=== PATIENT | male | born 1950 | race Caucasian/White ===

== ENCOUNTER 2016-08-03 09:23 | Day surgery (SDC) | payer OTHER ==
[~2016-08-03] VITALS: Ht 177.8 cm; Wt 93.4 kg
[~2016-08-03 09:23] MED LIST: PERCOCET 5/31 TABLET PO
[2016-08-03 10:04] VITALS: BP 132/83
[2016-08-03] MEDS ORDERED: NORCO 5/3251 TABLET PO (14:36)
[2016-08-03 15:35] VITALS: BP 130/88
[2016-08-03 15:58] VITALS: BP 125/65
== END 2016-08-03 16:05 | disposition home or self-care (01) ==
LOC: SDC 09:23
PROC: 0YU60JZ Supplement Left Inguinal Region with Synthetic Substitute, Open Approach (ICD-10-PCS; principal; 2016-08-03)
DX: K40.30 Unilateral inguinal hernia, with obstruction, without gangrene, not specified as recurrent (principal); E66.3 Overweight; Z68.29 Body mass index [BMI] 29.0-29.9, adult; Z82.49 Family history of ischemic heart disease and other diseases of the circulatory system
CPT/HCPCS: C1781; J0131; J0690; J1170; J1200; J1885; J2250; J2405; J3010; S0020

== ENCOUNTER 2016-08-10 20:07 | Inpatient (IN) | payer OTHER ==
[~2016-08-10] VITALS: Ht 172.7 cm; Wt 85.5 kg
[~2016-08-10 20:07] MED LIST changes: +NORCO 5/3251 TABLET PO
[2016-08-10 21:19] LABS: MCH 30.4 PG (29.0-34.0); MCHC 33.9 G/DL (30.0-36.0); MCV 89.6 FL (86-99); MEAN PLAT.VOLUME 10.3 uM^3 (9.0-12.4); PLATELET COUNT 322 K/uL (156-360); RBC DIS.WIDTH-CV 11.9 % (11.8-14.6); RBC DIS.WIDTH-SD 38.5 % (39-53); RED BLOOD COUNT 5.69 M/uL (4.00-5.50); WHITE BLOOD COUNT 10.7 K/uL (4.1-10.2)
[2016-08-10 22:14] LABS: POINT-OF-CARE METER ID UU13113702
[2016-08-10] MEDS ORDERED: ADVIL200 MG PO (22:15)
[2016-08-10 22:28] LABS: CHLORIDE 102 mEq/L (99-109); POTASSIUM 5.3 mEq/L (3.7-5.4); SODIUM 130 mEq/L (136-147)
[2016-08-10 22:30] LABS: GLUCOSE 394 mg/dL (70-99)
[2016-08-10 22:31] LABS: ANION GAP 21 MEQ/L (2-14)
[2016-08-10 22:32] LABS: TOTAL BILIRUBIN 0.4 mg/dL (0.0-1.0)
[2016-08-10 22:34] LABS: ALKALINE PHOSPHATASE 58 IU/L (3-129); GFR ESTIMATE (CALCULATED) 43 mL/min/
[2016-08-10 22:35] LABS: UREA NITROGEN (BUN) 26 mg/dL (9-23)
[2016-08-10 22:36] LABS: DIRECT BILIRUBIN 0.2 mg/dL (0.0-0.3)
[2016-08-10 22:37] LABS: LIPASE 347 U/L (1.0-51.0)
[2016-08-10 23:00] LABS: POINT-OF-CARE METER ID UU13113702
[2016-08-11] VITALS (23 sets, daily range): BP systolic 83–128; BP diastolic 48–76
[2016-08-11 00:06] LABS: POINT-OF-CARE METER ID UU13113702
[2016-08-11 00:51] LABS: POINT-OF-CARE METER ID UU13113702; POINT-OF-CARE USER ID 608261302
[2016-08-11 01:53] LABS: POINT-OF-CARE METER ID UU13113702
[2016-08-11 03:18] LABS: METH RESISTANT S AUREUS PCR NEGATIVE (NEGATIVE)
[2016-08-11 03:23] LABS: PROBE CHECK PASS; SPECIMEN PROCESSING CONTROL PASS
[2016-08-11 04:33] LABS: EOSINOPHIL (%) 0.2 % (0-5); HEMATOCRIT 42.4 % (38.0-50.0); IMMATURE GRANULOCYTE (%) 1.3 % (0.0-0.7); IMMATURE GRANULOCYTE COUNT 0.1 K/uL; INSTRUMENT ABS NEUTROPHIL CT 6.8 K/uL; LYMPHOCYTE COUNT 1.3 K/uL (1.0-2.8); MCH 30.1 PG (29.0-34.0); MCV 88.5 FL (86-99); MEAN PLAT.VOLUME 10.1 uM^3 (9.0-12.4); MONOCYTE (%) 6.6 % (3-12); MONOCYTE COUNT 0.6 K/uL (0-0.8); NEUTROPHIL (%) 77.2 % (45-76); NEUTROPHIL COUNT 6.8 K/uL (1.8-6.4); PLATELET COUNT 282 K/uL (156-360); RBC DIS.WIDTH-CV 11.8 % (11.8-14.6); RBC DIS.WIDTH-SD 37.6 % (39-53); RED BLOOD COUNT 4.79 M/uL (4.00-5.50); WHITE BLOOD COUNT 8.8 K/uL (4.1-10.2)
[2016-08-11 04:39] LABS: CHLORIDE 109 mEq/L (99-109); POTASSIUM 4.5 mEq/L (3.7-5.4); SODIUM 134 mEq/L (136-147)
[2016-08-11 04:40] LABS: GLUCOSE 241 mg/dL (70-99)
[2016-08-11 04:42] LABS: ANION GAP 14 MEQ/L (2-14)
[2016-08-11 04:45] LABS: GFR ESTIMATE (CALCULATED) 50 mL/min/; UREA NITROGEN (BUN) 24 mg/dL (9-23)
[2016-08-11 08:10] LABS: Estimated Average Glucose 390 mg/dL (70-123)
[2016-08-11 08:12] LABS: HEMOGLOBIN A1c (GLYCOHEMOGLOB) 15.2 % HGB (Below 5.7)
[2016-08-11 08:42] LABS: ANION GAP 13 MEQ/L (2-14); CHLORIDE 107 MEQ/L (99-109); GLUCOSE 206 mg/dL (70-99); POTASSIUM 4.1 MEQ/L (3.7-5.4); SAMPLE HEMOLYSIS CHECK 0; SAMPLE ICTERIC CHECK 0; SAMPLE LIPEMIA CHECK 0; SODIUM 133 MEQ/L (136-147); UREA NITROGEN (BUN) 22 mg/dL (9-23)
[2016-08-11 08:43] LABS: GFR ESTIMATE (CALCULATED) > 59 mL/min/
[2016-08-11 10:55] LABS: BASE EXCESS -9.9 mEq/L (-3 to +3); BICARBONATE 15.3 mEq/L (22-26); CARBOXY HGB 1.7 % (0-5); METHEMOGLOBIN 1.1 % (0-1.5); PCO2 31 mm Hg (35-45); PO2 76 mm Hg (80-100); SITE LR
[2016-08-11 10:56] LABS: COMMENTS - BLOOD GASES A+C+; DEVICE RA; TOTAL RESP RATE 10 resp/min
[2016-08-11 13:44] LABS: ANION GAP 10 MEQ/L (2-14); CHLORIDE 108 MEQ/L (99-109); POTASSIUM 3.7 MEQ/L (3.7-5.4); SAMPLE HEMOLYSIS CHECK 0; SAMPLE ICTERIC CHECK 0; SAMPLE LIPEMIA CHECK 0; SODIUM 133 MEQ/L (136-147)
[2016-08-11 13:49] LABS: GFR ESTIMATE (CALCULATED) > 59 mL/min/; GLUCOSE 133 mg/dL (70-99); UREA NITROGEN (BUN) 20 mg/dL (9-23)
[2016-08-11 15:59] LABS: ANION GAP 12 MEQ/L (2-14); CHLORIDE 105 MEQ/L (99-109); POTASSIUM 3.8 MEQ/L (3.7-5.4); SAMPLE HEMOLYSIS CHECK 0; SAMPLE ICTERIC CHECK 0; SAMPLE LIPEMIA CHECK 0; SODIUM 132 MEQ/L (136-147)
[2016-08-11 16:05] LABS: GFR ESTIMATE (CALCULATED) > 59 mL/min/; UREA NITROGEN (BUN) 19 mg/dL (9-23)
[2016-08-11 16:09] LABS: GLUCOSE 210 mg/dL (70-99)
[2016-08-11 20:30] LABS: ANION GAP 13 MEQ/L (2-14); CHLORIDE 106 MEQ/L (99-109); GFR ESTIMATE (CALCULATED) > 59 mL/min/; GLUCOSE 223 mg/dL (70-99); POTASSIUM 3.5 MEQ/L (3.7-5.4); SAMPLE HEMOLYSIS CHECK 0; SAMPLE ICTERIC CHECK 0; SAMPLE LIPEMIA CHECK 0; SODIUM 132 MEQ/L (136-147); UREA NITROGEN (BUN) 17 mg/dL (9-23)
[2016-08-12] VITALS (13 sets, daily range): BP systolic 85–134; BP diastolic 49–80
[2016-08-12 01:19] LABS: CHLORIDE 108 mEq/L (99-109); POTASSIUM 3.7 mEq/L (3.7-5.4); SODIUM 133 mEq/L (136-147)
[2016-08-12 01:21] LABS: GLUCOSE 221 mg/dL (70-99)
[2016-08-12 01:23] LABS: ANION GAP 13 MEQ/L (2-14)
[2016-08-12 01:25] LABS: GFR ESTIMATE (CALCULATED) > 59 mL/min/
[2016-08-12 01:26] LABS: UREA NITROGEN (BUN) 16 mg/dL (9-23)
[2016-08-12 06:16] LABS: ANION GAP 15 MEQ/L (2-14); CHLORIDE 105 MEQ/L (99-109); GFR ESTIMATE (CALCULATED) > 59 mL/min/; GLUCOSE 201 mg/dL (70-99); POTASSIUM 3.3 MEQ/L (3.7-5.4); SAMPLE HEMOLYSIS CHECK 0; SAMPLE ICTERIC CHECK 0; SAMPLE LIPEMIA CHECK 0; SODIUM 133 MEQ/L (136-147); UREA NITROGEN (BUN) 13 mg/dL (9-23)
[2016-08-12 06:32] LABS: EOSINOPHIL (%) 1.2 % (0-5); EOSINOPHIL COUNT 0.1 K/uL (0-0.3); HEMATOCRIT 36.3 % (38.0-50.0); IMMATURE GRANULOCYTE COUNT 0.1 K/uL; INSTRUMENT ABS NEUTROPHIL CT 3.6 K/uL; LYMPHOCYTE COUNT 0.9 K/uL (1.0-2.8); MCH 29.7 PG (29.0-34.0); MCHC 33.9 G/DL (30.0-36.0); MCV 87.7 FL (86-99); MONOCYTE COUNT 0.5 K/uL (0-0.8); NEUTROPHIL (%) 70.4 % (45-76); NEUTROPHIL COUNT 3.6 K/uL (1.8-6.4); RBC DIS.WIDTH-CV 11.9 % (11.8-14.6); RBC DIS.WIDTH-SD 38.5 % (39-53); RED BLOOD COUNT 4.14 M/uL (4.00-5.50)
[2016-08-12 07:00] LABS: WHITE BLOOD COUNT 5.1 K/uL (4.1-10.2)
[2016-08-12 07:15] LABS: HEMATOLOGY COMMENT 1 SN; PLAT.SUFFICIENCY ADEQUATE
[2016-08-12 09:16] LABS: PLATELET COUNT 184 K/uL (156-360)
[2016-08-12 11:49] LABS: BASE EXCESS -8.5 mEq/L (-3 to +3); BICARBONATE 14.5 mEq/L (22-26); CARBOXY HGB 1.7 % (0-5); COMMENTS - BLOOD GASES A+C+; DEVICE RA; METHEMOGLOBIN 1.3 % (0-1.5); PCO2 24 mm Hg (35-45); PO2 68 mm Hg (80-100); SITE RR; TOTAL RESP RATE 12 resp/min; pH 7.39 (7.35-7.45)
[2016-08-13] VITALS: BP 104/57
[2016-08-13 02:41] LABS: POINT-OF-CARE METER ID UU14174217
[2016-08-13 03:05] LABS: CHLORIDE 110 mEq/L (99-109); POTASSIUM 3.1 mEq/L (3.7-5.4); SODIUM 139 mEq/L (136-147)
[2016-08-13 03:06] LABS: GLUCOSE 176 mg/dL (70-99)
[2016-08-13 03:08] LABS: ANION GAP 9 MEQ/L (2-14)
[2016-08-13 03:10] LABS: GFR ESTIMATE (CALCULATED) > 59 mL/min/
[2016-08-13 03:11] LABS: UREA NITROGEN (BUN) 10 mg/dL (9-23)
[2016-08-13 06:00] VITALS: BP 138/81
[2016-08-13 06:22] LABS: POINT-OF-CARE METER ID UU14174217
[2016-08-13 09:00] VITALS: BP 129/76
[2016-08-13 09:41] LABS: POINT-OF-CARE METER ID UU14174217
[2016-08-13] MEDS ORDERED: KLOR-CON M2020 MEQ PO (10:08)
[2016-08-13] MEDS ORDERED: LEVEMIR100 UNIT/2 SC ×3 (10:08→12:53)
[2016-08-13] MEDS ORDERED: NOVOLOG PE100 UNITS/ SC ×2 (10:08→12:32)
[2016-08-13 14:08] LABS: POINT-OF-CARE METER ID UU14174217
== END 2016-08-13 14:09 | disposition home or self-care (01) | DRG 637 ==
LOC: EME 20:07 → EDOF 08-11 00:10 → 4WEST 08-11 00:10
PROVIDERS: Emergency Medicine; Internal Medicine Critical Care Medicine; Surgery Surgical Critical Care
DX: E13.10 Other specified diabetes mellitus with ketoacidosis without coma (principal); G93.41 Metabolic encephalopathy; K59.00 Constipation, unspecified; R41.82 Altered mental status, unspecified; Z98.890 Other specified postprocedural states
CPT/HCPCS: 36600; 70450; 74176; 80048; 80048 91; 80076; 81003; 82803; 82948; 83036; 83605; 83690; 84100; 85025; 85027; 87641; 93005; 99281; 99285; J1650; J1815; J2270; J2405; J2543; J3480; J7030; J7040; J7042; J7050; J7120

== ENCOUNTER 2017-11-29 07:22 | Emergency (ER) | payer OTHER ==
[~2017-11-29] VITALS: Ht 177.8 cm; Wt 82.7 kg
[~2017-11-29 07:22] MED LIST changes: +ADVIL200 MG PO; +KLOR-CON M2020 MEQ PO; +LEVEMIR100 UNIT/2 SC; +NOVOLOG PE100 UNITS/ SC
[2017-11-29 11:03] VITALS: BP 137/93
== END 2017-11-29 11:03 ==
LOC: EME 07:22
PROC: 0D20XUZ Change Feeding Device in Upper Intestinal Tract, External Approach (ICD-10-PCS; principal; 2017-11-29)
DX: Z43.1 Encounter for attention to gastrostomy (principal); Z86.73 Personal history of transient ischemic attack (TIA), and cerebral infarction without residual deficits; E11.9 Type 2 diabetes mellitus without complications; Z79.4 Long term (current) use of insulin
CPT/HCPCS: 74018; 99281; 99283

== ENCOUNTER 2017-12-02 13:22 | Inpatient (IN) | payer OTHER ==
[~2017-12-02] VITALS: Ht 182.9 cm; Wt 86.6 kg
[2017-12-02 15:20] LABS: BASOPHIL (%) 0.4 % (0-1); EOSINOPHIL (%) 2.7 % (0-5); EOSINOPHIL COUNT 0.2 K/uL (0-0.3); HEMOGLOBIN 15.2 G/DL (12.5-16.6); IMMATURE GRANULOCYTE (%) 0.1 % (0.0-0.7); LYMPHOCYTE (%) 28.4 % (15-42); LYMPHOCYTE COUNT 2.2 K/uL (1.0-2.8); MCH 31.3 PG (29.0-34.0); MCHC 35.3 G/DL (30.0-36.0); MCV 88.5 FL (86-99); MONOCYTE (%) 6.1 % (3-12); MONOCYTE COUNT 0.5 K/uL (0-0.8); NEUTROPHIL (%) 62.3 % (45-76); NEUTROPHIL COUNT 4.9 K/uL (1.8-6.4); PLATELET COUNT 171 K/uL (156-360); RBC DIS.WIDTH-CV 11.7 % (11.8-14.6); RBC DIS.WIDTH-SD 37.4 % (39-53); RED BLOOD COUNT 4.86 M/uL (4.00-5.50); WHITE BLOOD COUNT 7.9 K/uL (4.1-10.2)
[2017-12-02 15:30] LABS: CHLORIDE 103 mEq/L (99-109); POTASSIUM 3.6 mEq/L (3.7-5.4); SODIUM 141 mEq/L (136-147)
[2017-12-02 15:32] LABS: GLUCOSE 143 mg/dL (70-99)
[2017-12-02 15:35] LABS: INTER. NORMALIZED RATIO 1.3
[2017-12-02 15:36] LABS: CREATININE 0.8 mg/dL (0.6-1.3); GFR ESTIMATE (CALCULATED) > 59 mL/min/ (58.99-99999); UREA NITROGEN (BUN) 9 mg/dL (9-23)
[2017-12-02 15:38] LABS: PTT 37.9 SEC (25-37)
[2017-12-02 17:12] VITALS: BP 172/107
[2017-12-02 19:55] VITALS: BP 138/87
[2017-12-03 00:20] VITALS: BP 152/86
[2017-12-03 04:30] VITALS: BP 158/95
[2017-12-03 08:00] VITALS: BP 140/88
[2017-12-03 11:25] VITALS: BP 162/87
[2017-12-03] MEDS ORDERED: FLUOXETINE HCL20 M1 GT (11:56)
[2017-12-03] MEDS ORDERED: PROTONIX40 M1 GT (11:56)
[2017-12-03] MEDS ORDERED: SENNA8.6 MG GT (11:57)
[2017-12-03] MEDS ORDERED: TRAMADOL HCL50 MG GT ×2 (11:58→12:05)
[2017-12-03] MEDS ORDERED: VICTOZA 2-0.6 MG/0.1 SC (11:59)
[2017-12-03] MEDS ORDERED: BASAGLAR K100 UNIT/1 SC (12:00)
[2017-12-03] MEDS ORDERED: TYLENOL REGULA325 MG GT ×2 (12:01→12:04)
[2017-12-03] MEDS ORDERED: COLCHICINE0.6 M1 GT (12:01)
[2017-12-03] MEDS ORDERED: BACLOFEN10 MG GT (12:01)
[2017-12-03] MEDS ORDERED: ELIQUIS5 MG GT (12:02)
[2017-12-03 15:45] VITALS: BP 146/85
[2017-12-03 19:42] VITALS: BP 142/76
[2017-12-04 03:31] VITALS: BP 133/84
[2017-12-04 07:22] VITALS: BP 145/82
[2017-12-04 11:34] VITALS: BP 146/74
== END 2017-12-04 17:36 | DRG 949 ==
LOC: EME 13:22 → EDOF 16:18 → 4SOUTH 16:18 → ENRESERV 16:27 → 4SOUTH 16:54
PROVIDERS: Emergency Medicine; Family Medicine; Surgery
PROC: 3E0G76Z Introduction of Nutritional Substance into Upper GI, Via Natural or Artificial Opening (ICD-10-PCS; principal; 2017-12-03)
PROC: 0DH68UZ Insertion of Feeding Device into Stomach, Via Natural or Artificial Opening Endoscopic (ICD-10-PCS; principal; 2017-12-03)
DX: Z51.81 Encounter for therapeutic drug level monitoring (principal); Z43.1 Encounter for attention to gastrostomy; I69.354 Hemiplegia and hemiparesis following cerebral infarction affecting left non-dominant side; I10 Essential (primary) hypertension; I25.10 Atherosclerotic heart disease of native coronary artery without angina pectoris; K21.9 Gastro-esophageal reflux disease without esophagitis; E11.9 Type 2 diabetes mellitus without complications; E78.5 Hyperlipidemia, unspecified; M10.9 Gout, unspecified; G89.4 Chronic pain syndrome; R32 Unspecified urinary incontinence; R15.9 Full incontinence of feces; I69.391 Dysphagia following cerebral infarction; R13.10 Dysphagia, unspecified; I69.320 Aphasia following cerebral infarction; I25.2 Old myocardial infarction; Z79.01 Long term (current) use of anticoagulants; Z79.4 Long term (current) use of insulin; Z86.711 Personal history of pulmonary embolism
CPT/HCPCS: 71045; 74018; 80048; 82948; 85025; 85610; 85730; 93005; 99281; 99283; 99285; B4087; J2250; J2405; J3010; J7030

== ENCOUNTER 2017-12-18 07:04 | Emergency (ER) | payer OTHER ==
[~2017-12-18] VITALS: Ht 177.8 cm; Wt 80.0 kg
[~2017-12-18 07:04] MED LIST changes: +BACLOFEN10 MG GT; +BASAGLAR K100 UNIT/1 SC; +COLCHICINE0.6 M1 GT; +ELIQUIS5 MG GT; +FLUOXETINE HCL20 M1 GT; +PROTONIX40 M1 GT; +SENNA8.6 MG GT; +TRAMADOL HCL50 MG GT; +TYLENOL REGULA325 MG GT; +VICTOZA 2-0.6 MG/0.1 SC
[2017-12-18 10:52] VITALS: BP 148/10
== END 2017-12-18 10:54 ==
LOC: EME 07:04
DX: Z43.1 Encounter for attention to gastrostomy (principal); E78.5 Hyperlipidemia, unspecified; I10 Essential (primary) hypertension; E11.9 Type 2 diabetes mellitus without complications; I69.351 Hemiplegia and hemiparesis following cerebral infarction affecting right dominant side; K21.9 Gastro-esophageal reflux disease without esophagitis; F32.9 Major depressive disorder, single episode, unspecified; Z87.19 Personal history of other diseases of the digestive system; Z87.39 Personal history of other diseases of the musculoskeletal system and connective tissue
CPT/HCPCS: 74018; 99281; 99284